=== PATIENT | male | born 1960 | race African-American/Black ===

== ENCOUNTER 2018-09-14 14:50 | Emergency (ER) | payer MEDICAID, OTHER ==
[~2018-09-14] VITALS: Ht 167.6 cm; Wt 59.0 kg
[~2018-09-14 14:50] MED LIST: ACYC400T5; ATRIPLA; PRENATAL
[2018-09-14 15:18] VITALS: BP 144/81
[2018-09-14 17:17] LABS: CLARITY URINE CLEAR (CLEAR); COLOR URINE YELLOW (YELLOW); KETONES URINE TRACE (NEGATIVE); LEUKOCYTE ESTERASE URINE TRACE (NEGATIVE); NITRITE URINE NEGATIVE (NEGATIVE); OCCULT BLOOD URINE 1+ (NEGATIVE); PH URINE 6.5 (4.5-8.0); PROTEIN URINE 2+ (NEGATIVE)
[2018-09-15] MEDS ORDERED: CLONIDINE 0.1MG TABLET PO PRN (20:15)
[2018-09-15] MEDS ORDERED: ACETAMINOPHEN 325MG TABLET PO PRN (20:15)
[2018-09-15] MEDS ORDERED: CEFTRIAXONE 1 G PREMIX 50 ML IV SCH (20:15)
[2018-09-15] MEDS ORDERED: MAGNESIUM/ALUMINUM HYDROXIDE/SIMETHICONE 30ML UDC PO PRN (20:15)
[2018-09-15] MEDS ORDERED: IPRATROPIUM/ALBUTEROL 0.5-3(2.5)MG/3ML NEB INH PRN (20:15)
[2018-09-15] MEDS ORDERED: ONDANSETRON HCL 4MG/2ML INJ IV PRN (20:15)
[2018-09-15] MEDS ORDERED: DOCUSATE SODIUM 100MG CAPSULE PO PRN (20:15)
[2018-09-16] MEDS ORDERED: OMEPRAZOLE 20MG CAPSULE EXTENDED RELEASE PO SCH (07:50)
[2018-09-16 09:53] LABS: PHOSPHORUS 3.2 mg/dL (2.5-4.9)
[2018-09-16 09:56] LABS: T4 FREE 1.32 ng/dL (0.76-1.46)
== END 2018-09-14 18:47 | disposition left against medical advice (07) ==
LOC: ER 14:50
DX: R53.1 Weakness (principal); R49.8 Other voice and resonance disorders
CPT/HCPCS: 36415; 84100; 84153; 84439; 84443; 84481; 84484; 99283; G0103

== ENCOUNTER 2018-09-15 09:29 | Inpatient (IN) | payer MEDICAID ==
[~2018-09-15] VITALS: Ht 170.2 cm; Wt 57.2 kg
[2018-09-15 12:12] LABS: BASOPHILS % 0.8 % (0.0-2.0); EOSINOPHILS % 0.7 % (0.0-5.0); HEMATOCRIT. 34.9 % (42.0-52.0); LYMPHOCYTES % 21.8 % (20.0-50.0); MEAN CORPUSCULAR HEMOGLOBIN 26.5 pg (28.0-32.0); MEAN CORPUSCULAR VOLUME 84.1 fL (80.0-94.0); MEAN PLATELET VOLUME 7.2 fl (7.4-10.4); MONOCYTES % 14.3 % (2.0-8.0); NEUTROPHILS % 62.4 % (40.0-76.0); PLATELET 271 x1000/uL (130-400); RED BLOOD CELL COUNT 4.15 mill/uL (4.7-6.1)
[2018-09-15 12:20] LABS: CHLORIDE 104 mEq/L (98-107)
[2018-09-15 12:24] LABS: ETHANOL BLOOD < 10 mg/dL
[2018-09-15 12:26] LABS: CANNABINOID URINE SCREEN PRESUMTIVE POSITIVE (NEGATIVE); OPIATES URINE SCREEN NEGATIVE (NEGATIVE); PHENCYCLIDINE URINE SCREEN NEGATIVE (NEGATIVE)
[2018-09-15 12:27] LABS: *AMPHETAMINES SCREEN URINE NEGATIVE (NEGATIVE); *BARBITURATES SCREEN URINE NEGATIVE (NEGATIVE); *BENZODIAZEPINES SCREEN URINE NEGATIVE (NEGATIVE); *COCAINE SCREEN URINE NEGATIVE (NEGATIVE); METHADONE URINE SCREEN NEGATIVE (NEGATIVE)
[2018-09-15 12:32] LABS: INR 1.3; PROTHROMBIN TIME 13.2 sec (9.1-11.1)
[2018-09-15] MEDS ORDERED: ASPIRIN 325MG EC TABLET PO ONE (14:00)
[2018-09-15] MEDS ORDERED: MAGNESIUM/ALUMINUM HYDROXIDE/SIMETHICONE 30ML UDC PO PRN (20:30)
[2018-09-15] MEDS ORDERED: DIPHENHYDRAMINE 50MG/ML VIAL IV PRN (20:30)
[2018-09-15 22:35] VITALS: BP 126/83
[2018-09-15 23:00] VITALS: BP 126/83
[2018-09-16] VITALS (10 sets, daily range): BP systolic 106–150; BP diastolic 64–86
[2018-09-16] MEDS ORDERED: FINA5TAB11 PO (00:29)
[2018-09-16] MEDS ORDERED: TAMS0.4C31 PO (00:29)
[2018-09-16] MEDS ORDERED: PNV1TABL50 PO (00:29)
[2018-09-16] MEDS ORDERED: BICT1TAB PO (00:29)
[2018-09-16] MEDS ORDERED: ONDANSETRON HCL 4MG/2ML INJ IV PRN (06:15)
[2018-09-16] MEDS ORDERED: CLONIDINE 0.1MG TABLET PO PRN (06:15)
[2018-09-16] MEDS ORDERED: ACETAMINOPHEN 325MG TABLET PO PRN (06:15)
[2018-09-16] MEDS ORDERED: IPRATROPIUM/ALBUTEROL 0.5-3(2.5)MG/3ML NEB HHN PRN ×2 (06:15→13:00)
[2018-09-16] MEDS ORDERED: DOCUSATE SODIUM 100MG CAPSULE PO PRN (06:15)
[2018-09-16] MEDS: OMEPRAZOLE 20MG CAPSULE EXTENDED RELEASE PO SCH (06:18)
[2018-09-16 06:51] LABS: HEMATOCRIT. 32.9 % (42.0-52.0); HEMOGLOBIN. 10.5 g/dL (14.0-18.0); MEAN CORPUSCULAR HEMOGLOBIN 26.5 pg (28.0-32.0); MEAN CORPUSCULAR VOLUME 82.8 fL (80.0-94.0); MEAN PLATELET VOLUME 7.8 fl (7.4-10.4); PLATELET 267 x1000/uL (130-400); RED BLOOD CELL COUNT 3.98 mill/uL (4.7-6.1); RED CELL DISTRIBUTION WIDTH 14.3 % (11.6-14.6)
[2018-09-16 07:16] LABS: CHLORIDE 104 mEq/L (98-107)
[2018-09-16 07:29] LABS: LDL CHOLESTEROL 86 mg/dL (5-100)
[2018-09-16 07:31] LABS: HDL CHOLESTEROL 34 mg/dL (40-59)
[2018-09-16] MEDS: CLOPIDOGREL 75MG TABLET PO SCH (09:52)
[2018-09-16] MEDS: CEFTRIAXONE 1,000 MG in DEXTROSE 5% WATER 50 ML IV SCH (10:19)
[2018-09-16 10:30] LABS: T4 FREE 1.32 ng/dL (0.76-1.46)
[2018-09-16 10:44] LABS: FOLIC ACID (FOLATE) SERUM 13.3 ng/mL (>5.38)
[2018-09-16 13:10] LABS: PLATELET ESTIMATE NORMAL
[2018-09-16] MEDS ORDERED: ALBU18HF2 IH (13:21)
[2018-09-16] MEDS: TAMSULOSIN HCL 0.4MG SR CAPSULE PO SCH (15:41)
[2018-09-16] MEDS: PRENATAL VIT/FE FUMARATE/FA TABLET PO SCH (15:42)
[2018-09-16] MEDS: ACYCLOVIR 400 MG TABLET PO SCH (16:00)
[2018-09-16] MEDS ORDERED: ACYCLOVIR 200MG CAPSULE PO SCH (16:00)
[2018-09-16] MEDS ORDERED: ALBUTEROL 6.7GM HFA INHALER INH SCH (16:00)
[2018-09-16] MEDS ORDERED: FERROUS FUMARATE PO SCH (16:00)
[2018-09-16] MEDS ORDERED: MEDICATION NOT ON FORMULARY EA (Bictegrav/Emtricit/Tenofov Ala (Biktarvy 50-200-25 mg Ta PO SCH (16:00)
[2018-09-16] MEDS ORDERED: [UNRECOGNIZED DRUG - OTHER] PO SCH (16:00)
[2018-09-16] MEDS ORDERED: PNV CMB PO SCH (16:00)
[2018-09-16] MEDS ORDERED: ALBUTEROL (0.083%) 2.5MG/3ML NEB HHN SCH (18:00)
[2018-09-16] MEDS: FINASTERIDE 5MG TABLET PO SCH (19:21)
[2018-09-17] VITALS (11 sets, daily range): BP systolic 95–129; BP diastolic 60–93
[2018-09-17 06:55] LABS: HEMOGLOBIN. 10.1 g/dL (14.0-18.0); MEAN CORPUSCULAR HEMOGLOBIN 26.3 pg (28.0-32.0); MEAN CORPUSCULAR VOLUME 83.2 fL (80.0-94.0); MEAN PLATELET VOLUME 7.7 fl (7.4-10.4); PLATELET 288 x1000/uL (130-400); RED BLOOD CELL COUNT 3.85 mill/uL (4.7-6.1)
[2018-09-17 07:08] LABS: CHLORIDE 102 mEq/L (98-107)
[2018-09-17] MEDS: OMEPRAZOLE 20MG CAPSULE EXTENDED RELEASE PO SCH (08:25)
[2018-09-17] MEDS: CLOPIDOGREL 75MG TABLET PO SCH (08:26)
[2018-09-17] MEDS: FINASTERIDE 5MG TABLET PO SCH (08:26)
[2018-09-17] MEDS: TAMSULOSIN HCL 0.4MG SR CAPSULE PO SCH (08:26)
[2018-09-17] MEDS: PRENATAL VIT/FE FUMARATE/FA TABLET PO SCH (08:26)
[2018-09-17] MEDS: ACYCLOVIR 400 MG TABLET PO SCH (08:28)
[2018-09-17] MEDS ORDERED: MEDICATION NOT ON FORMULARY EA (Finasteride 5 MG) PO SCH (09:00)
[2018-09-17] MEDS: CEFTRIAXONE 1,000 MG in DEXTROSE 5% WATER 50 ML IV SCH (09:31)
[2018-09-17 14:31] LABS: PLATELET ESTIMATE NORMAL
[2018-09-18] MEDS ORDERED: FAMOTIDINE 20MG TABLET PO SCH (09:00)
[2018-09-18 09:06] LABS: ABSOLUTE EOSINOPHILS 0.1 x10E3/uL (0.0-0.4); ABSOLUTE LYMPHOCYTES 2.1 x10E3/uL (0.7-3.1); ABSOLUTE MONOCYTES 0.9 x10E3/uL (0.1-0.9); ABSOLUTE NEUTROPHILS 6.3 x10E3/uL (1.4-7.0); BASOPHILS 0 % (Not Estab.); HEMATOCRIT 33.8 % (37.5-51.0); HEMOGLOBIN 10.4 g/dL (13.0-17.7); IMMATURE GRANULOCYTES 0 % (Not Estab.); LYMPHOCYTES 22 % (Not Estab.); MEAN CORPUSCULAR HEMOGLOBIN 26.5 pg (26.6-33.0); MEAN CORPUSCULAR HGB CONC. 30.8 g/dL (31.5-35.7); MEAN CORPUSCULAR VOLUME 86 fL (79-97); MONOCYTES 10 % (Not Estab.); NEUTROPHILS 67 % (Not Estab.); PLATELETS 278 x10E3/uL (150-379); RBC 3.92 x10E6/uL (4.14-5.80); RED CELL DISTRIBUTION WIDTH 14.1 % (12.3-15.4); WBC 9.5 x10E3/uL (3.4-10.8)
[2018-09-18 13:06] LABS: % CD 3 POS. LYMPHOCYTES 69.7 % (57.5-86.2); % CD 4 POS. LYMPHOCYTES 29.1 % (30.8-58.5); % CD 8 POS. LYMPH 41.5 % (12.0-35.5); ABSOLUTE CD 3 1464 /uL (622-2402); ABSOLUTE CD 4 HELPER 611 /uL (359-1519); ABSOLUTE CD 8 SUPPRESSOR 872 /uL (109-897)
[2018-09-19 05:22] LABS: ANTI-CARDIOLIPIN AB IGA < 9 APL U/mL (0-11); ANTI-CARDIOLIPIN AB IGG < 9 GPL U/mL (0-14); ANTI-CARDIOLIPIN AB IGM 9 MPL U/mL (0-12)
[2018-09-19 15:06] LABS: ANTI-THROMBIN ACTIVITY 136 % (75-135); DRVVT LA 56.5 sec (0.0-47.0); PROTEIN C FUNCTIONAL 119 % (73-180); PTT-LA 49.9 sec (0.0-51.9)
[2018-09-20 09:06] LABS: DRVVT MIX LA 44.4 sec (0.0-47.0)
[2018-09-20 17:09] LABS: LUPUS ANTICOAG INTERPRETATION Comment: (.)
== END 2018-09-17 17:35 | disposition home or self-care (01) | DRG 45 ==
LOC: ER 10:44 → 8WST 14:50 → ENRESERV 20:59 → 5EST 09-16 11:42
PROVIDERS: ADMIT Family Medicine Adult Medicine; ATTEND Family Medicine Adult Medicine
PROC: 4A00X4Z Measurement of Central Nervous Electrical Activity, External Approach (ICD-10-PCS; principal; 2018-09-16)
DX: I63.9 Cerebral infarction, unspecified (principal); E43 Unspecified severe protein-calorie malnutrition; J96.10 Chronic respiratory failure, unspecified whether with hypoxia or hypercapnia; J98.4 Other disorders of lung; D64.9 Anemia, unspecified; I10 Essential (primary) hypertension; E78.5 Hyperlipidemia, unspecified; F12.90 Cannabis use, unspecified, uncomplicated; F17.210 Nicotine dependence, cigarettes, uncomplicated; J44.9 Chronic obstructive pulmonary disease, unspecified; N40.0 Benign prostatic hyperplasia without lower urinary tract symptoms; Z86.11 Personal history of tuberculosis; Z79.899 Other long term (current) drug therapy
CPT/HCPCS: 36415; 70544; 70551; 71045; 71250; 80048; 80061; 80305; 80320; 81400; 81403; 81407; 81479; 82607; 82746; 83036; 83735; 83880; 84100; 84153; 84439; 84443; 84481; 84484; 85300; 85303; 85306; 85613; 85732; 86147; 86359; 86360; 93005; 93306; 93880; 93970; 97162; 99285; J0696; J7050; J7060; G0103; G0480

== ENCOUNTER 2018-10-21 11:41 | Inpatient (IN) | payer MEDICAID ==
[~2018-10-21] VITALS: Ht 360.7 cm; Wt 51.5 kg
[~2018-10-21 11:41] MED LIST changes: +ALBU18HF2 IH; +BICT1TAB PO; +FINA5TAB11 PO; +PNV1TABL50 PO; -PRENATAL; +TAMS0.4C31 PO
[2018-10-21] MEDS ORDERED: KETOROLAC 30MG/ML VIAL IV STA (15:57)
[2018-10-21] MEDS ORDERED: SODIUM CHLORIDE 0.9% 1,000 ML IV ONE (15:57)
[2018-10-21] MEDS ORDERED: MAGNESIUM/ALUMINUM HYDROXIDE/SIMETHICONE 30ML UDC PO STA (15:57)
[2018-10-21] MEDS ORDERED: PANTOPRAZOLE SODIUM 40 MG/VIAL IV STA (15:57)
[2018-10-21 16:24] LABS: CHLORIDE 100 mEq/L (98-107)
[2018-10-21 16:30] LABS: HEMATOCRIT. 25.8 % (42.0-52.0); HEMOGLOBIN. 8.2 g/dL (14.0-18.0); MEAN CORPUSCULAR HEMOGLOBIN 25.1 pg (28.0-32.0); MEAN CORPUSCULAR VOLUME 78.7 fL (80.0-94.0); MEAN PLATELET VOLUME 7.1 fl (7.4-10.4); PLATELET 286 x1000/uL (130-400); RED BLOOD CELL COUNT 3.28 mill/uL (4.7-6.1); RED CELL DISTRIBUTION WIDTH 15.5 % (11.6-14.6)
[2018-10-21 16:48] LABS: PLATELET ESTIMATE NORMAL
[2018-10-21] MEDS ORDERED: FENTANYL CITRATE/PF 50MCG/ML 2ML VIAL IV ONE (17:45)
[2018-10-21 18:22] LABS: CLARITY URINE CLEAR (CLEAR); COLOR URINE DARK YELLOW (YELLOW); KETONES URINE NEGATIVE (NEGATIVE); LEUKOCYTE ESTERASE URINE TRACE (NEGATIVE); NITRITE URINE NEGATIVE (NEGATIVE); OCCULT BLOOD URINE 2+ (NEGATIVE); PH URINE 5.5 (4.5-8.0); PROTEIN URINE 2+ (NEGATIVE); SPECIFIC GRAVITY URINE 1.025 (1.005-1.030)
[2018-10-21] MEDS ORDERED: HYDRALAZINE 20MG/ML VIAL IV PRN (19:45)
[2018-10-21] MEDS ORDERED: DOCUSATE SODIUM 100MG CAPSULE PO PRN (19:45)
[2018-10-21] MEDS ORDERED: LORAZEPAM 2MG/ML CPJ IV PRN (19:45)
[2018-10-21] MEDS ORDERED: IPRATROPIUM/ALBUTEROL 0.5-3(2.5)MG/3ML NEB INH PRN (19:45)
[2018-10-21] MEDS ORDERED: MAGNESIUM/ALUMINUM HYDROXIDE/SIMETHICONE 30ML UDC PO PRN (19:45)
[2018-10-21] MEDS ORDERED: DIPHENHYDRAMINE 50MG/ML VIAL IV PRN (19:45)
[2018-10-21] MEDS ORDERED: CLONIDINE 0.1MG TABLET PO PRN (19:45)
[2018-10-21] MEDS ORDERED: ACETAMINOPHEN 325MG TABLET PO PRN (19:45)
[2018-10-21] MEDS ORDERED: GUAIFENESIN 200MG/10ML SUGAR FREE UDC PO PRN (19:45)
[2018-10-21] MEDS ORDERED: ONDANSETRON HCL 4MG/2ML INJ IV PRN (19:45)
[2018-10-21] MEDS ORDERED: LEVOFLOXACIN 500MG PREMIX 100 ML IV NR (20:35)
[2018-10-21] MEDS ORDERED: HYDROMORPHONE HCL/PF 2MG/ML CPJ IV PRN (21:00)
[2018-10-21] MEDS ORDERED: HYDROCODONE/ACETAMINOPHEN 10/325MG TABLET PO PRN (21:00)
[2018-10-21] MEDS ORDERED: NA PHOS,M-B/NA PHOS,DI-BA ENEMA 118ML PR PRN (21:00)
[2018-10-21 21:50] VITALS: BP 113/67
[2018-10-21] MEDS ORDERED: SODIUM CHLORIDE 0.9% INJ 3ML FLUSH IVF SCH (22:00)
[2018-10-21 23:40] LABS: CREATINE KINASE MB FRACTION 6.5 ng/mL (0.5-3.6)
[2018-10-22] VITALS: BP 130/75
[2018-10-22 04:02] VITALS: BP 107/51
[2018-10-22] MEDS: SODIUM CHLORIDE 0.9% INJ 3ML FLUSH IVF SCH ×3 (05:03→21:29)
[2018-10-22 07:48] LABS: BASOPHILS % 0.3 % (0.0-2.0); EOSINOPHILS % 0.1 % (0.0-5.0); HEMATOCRIT. 23.7 % (42.0-52.0); HEMOGLOBIN. 7.4 g/dL (14.0-18.0); LYMPHOCYTES % 8.2 % (20.0-50.0); MEAN CORPUSCULAR VOLUME 79.8 fL (80.0-94.0); MEAN PLATELET VOLUME 7.7 fl (7.4-10.4); MONOCYTES % 9.5 % (2.0-8.0); NEUTROPHILS % 81.9 % (40.0-76.0); PLATELET 263 x1000/uL (130-400); RED BLOOD CELL COUNT 2.97 mill/uL (4.7-6.1); RED CELL DISTRIBUTION WIDTH 15.8 % (11.6-14.6)
[2018-10-22 07:59] LABS: CHLORIDE 104 mEq/L (98-107)
[2018-10-22 08:00] VITALS: BP 92/43
[2018-10-22 08:15] LABS: CREATINE KINASE 133 IU/L (39-308)
[2018-10-22] MEDS ORDERED: ENOXAPARIN 40MG/0.4ML SYR SUBCUT SCH (09:00)
[2018-10-22] MEDS ORDERED: ASPIRIN 81MG EC TABLET PO SCH (09:00)
[2018-10-22 13:19] LABS: INR 1.4; PROTHROMBIN TIME 13.8 sec (9.6-11.0)
[2018-10-22 14:54] VITALS: BP 111/56
[2018-10-22 16:00] VITALS: BP 99/54
[2018-10-22] MEDS ORDERED: METOCLOPRAMIDE HCL 10MG/2ML VIAL IV NR ×2 (18:00→22:00)
[2018-10-22] MEDS ORDERED: BISACODYL 5MG TABLET PO NR ×2 (19:00→23:00)
[2018-10-22] MEDS ORDERED: SORBITOL 70% SOLN 30ML PO NR (19:00)
[2018-10-22 20:00] VITALS: BP 116/67
[2018-10-22] MEDS ORDERED: LEVOFLOXACIN 500MG PREMIX 100 ML IV SCH ×2 (20:36→21:00)
[2018-10-22 21:20] LABS: HEMOGLOBIN 7.5 g/dL (14.0-18.0)
[2018-10-23] VITALS: BP 110/60
[2018-10-23 04:00] VITALS: BP 101/64
[2018-10-23] MEDS: SODIUM CHLORIDE 0.9% INJ 3ML FLUSH IVF SCH (05:51)
[2018-10-23] MEDS ORDERED: SORBITOL 70% SOLN 30ML PO NR ×2 (06:00)
[2018-10-23 06:46] LABS: BASOPHILS % 0.5 % (0.0-2.0); EOSINOPHILS % 0.2 % (0.0-5.0); HEMATOCRIT. 23.3 % (42.0-52.0); HEMOGLOBIN. 7.4 g/dL (14.0-18.0); MEAN CORPUSCULAR HEMOGLOBIN 25.1 pg (28.0-32.0); MEAN CORPUSCULAR VOLUME 79.3 fL (80.0-94.0); MEAN PLATELET VOLUME 7.9 fl (7.4-10.4); MONOCYTES % 11.6 % (2.0-8.0); NEUTROPHILS % 71.7 % (40.0-76.0); PLATELET 312 x1000/uL (130-400); RED BLOOD CELL COUNT 2.94 mill/uL (4.7-6.1); RED CELL DISTRIBUTION WIDTH 15.8 % (11.6-14.6)
[2018-10-23 07:40] LABS: CHLORIDE 104 mEq/L (98-107)
== END 2018-10-23 08:08 | disposition home or self-care (01) | DRG 892 ==
LOC: ER 11:41 → 6EST 18:21 → ENRESERV 20:51 → 6WST 10-22 02:13
PROVIDERS: ADMIT Internal Medicine; ATTEND Internal Medicine
DX: B20 Human immunodeficiency virus [HIV] disease (principal); A41.9 Sepsis, unspecified organism; E46 Unspecified protein-calorie malnutrition; R16.0 Hepatomegaly, not elsewhere classified; R71.0 Precipitous drop in hematocrit; N39.0 Urinary tract infection, site not specified; R10.9 Unspecified abdominal pain; Z79.899 Other long term (current) drug therapy; I10 Essential (primary) hypertension; R91.1 Solitary pulmonary nodule; R74.8 Abnormal levels of other serum enzymes; J44.9 Chronic obstructive pulmonary disease, unspecified; K40.90 Unilateral inguinal hernia, without obstruction or gangrene, not specified as recurrent; N40.0 Benign prostatic hyperplasia without lower urinary tract symptoms; Z79.02 Long term (current) use of antithrombotics/antiplatelets; Z79.82 Long term (current) use of aspirin; Z80.0 Family history of malignant neoplasm of digestive organs; Z86.73 Personal history of transient ischemic attack (TIA), and cerebral infarction without residual deficits
CPT/HCPCS: 36415; 74176; 80048; 80076; 82105; 82550; 82553; 82728; 83540; 83550; 84484; 85014; 85018; 86850; 86900; 86920; 93005; 96374; 96375; 99285; C9113; J1650; J1885; J1956; J2765; J3010; J7030; J7050

== ENCOUNTER 2018-12-15 18:06 | Inpatient (IN) | payer MEDICAID ==
[~2018-12-15] VITALS: Ht 153.9 cm; Wt 60.8 kg
[~2018-12-15 18:06] MED LIST changes: -ACYC400T5; +ACYC400T5 PO
[2018-12-15] MEDS ORDERED: TRAMADOL 50MG TABLET PO ONE (20:30)
[2018-12-15 23:08] LABS: BASOPHILS % 0.7 % (0.0-2.0); EOSINOPHILS % 0.1 % (0.0-5.0); LYMPHOCYTES % 13.3 % (20.0-50.0); MEAN CORPUSCULAR HEMOGLOBIN 26.1 pg (28.0-32.0); MEAN CORPUSCULAR VOLUME 82.1 fL (80.0-94.0); MEAN PLATELET VOLUME 7.6 fl (7.4-10.4); MONOCYTES % 9.1 % (2.0-8.0); NEUTROPHILS % 76.8 % (40.0-76.0); PLATELET 241 x1000/uL (130-400); RED BLOOD CELL COUNT 3.05 mill/uL (4.7-6.1); RED CELL DISTRIBUTION WIDTH 19.5 % (11.6-14.6)
[2018-12-15 23:09] LABS: CHLORIDE 102 mEq/L (98-107); INR 1.4
[2018-12-16 01:00] VITALS: BP 93/65
[2018-12-16] MEDS ORDERED: ACETAMINOPHEN 325MG TABLET PO PRN (01:15)
[2018-12-16] MEDS ORDERED: ONDANSETRON HCL 4MG/2ML INJ IV PRN (01:15)
[2018-12-16] MEDS ORDERED: MORPHINE SULFATE 2 MG/ML CPJ (NOT FOR IM USE) IV PRN (01:15)
[2018-12-16] MEDS ORDERED: PIPERACILLIN/TAZ 3.375G PREMIX 50 ML IV SCH (03:00)
[2018-12-16] MEDS: PIPERACILLIN/TAZ 3.375G PREMIX 50 ML IV SCH ×4 (03:44→21:08)
[2018-12-16] MEDS ORDERED: PIPERACILLIN/TAZOBACTAM 3.375GM/50ML PREMIX IV SCH (06:00)
[2018-12-16 08:00] VITALS: BP 95/61
[2018-12-16] MEDS ORDERED: IPRATROPIUM/ALBUTEROL 0.5-3(2.5)MG/3ML NEB HHN PRN ×2 (08:15→12:00)
[2018-12-16] MEDS ORDERED: HYDROCODONE/ACETAMINOPHEN 5/325MG TABLET PO PRN (08:15)
[2018-12-16 12:00] VITALS: BP 99/62
[2018-12-16] MEDS ORDERED: BUDESONIDE 0.5MG/2ML NEB HHN SCH (12:00)
[2018-12-16] MEDS: TAMSULOSIN HCL 0.4MG SR CAPSULE PO SCH (12:53)
[2018-12-16 16:00] VITALS: BP 114/77
[2018-12-16] MEDS ORDERED: IOHEXOL-300 100 ML BOTTLE ONE (17:39)
[2018-12-16] MEDS ORDERED: IPRATROPIUM/ALBUTEROL 0.5-3(2.5)MG/3ML NEB HHN SCH (18:00)
[2018-12-16 20:00] VITALS: BP 96/67
[2018-12-16] MEDS: ENOXAPARIN 60MG/0.6ML SYR SUBCUT SCH ×2 (20:00→21:08)
[2018-12-17] VITALS (18 sets, daily range): BP systolic 103–126; BP diastolic 69–78
[2018-12-17] MEDS: PIPERACILLIN/TAZ 3.375G PREMIX 50 ML IV SCH ×2 (03:27→08:56)
[2018-12-17] MEDS: ENOXAPARIN 60MG/0.6ML SYR SUBCUT SCH (08:23)
[2018-12-17] MEDS: TAMSULOSIN HCL 0.4MG SR CAPSULE PO SCH (08:56)
[2018-12-17] MEDS ORDERED: FINASTERIDE 5MG TABLET PO SCH (09:00)
[2018-12-17] MEDS ORDERED: ACYCLOVIR 400 MG PO SCH (09:00)
[2018-12-17] MEDS ORDERED: MEDICATION NOT ON FORMULARY EA (Finasteride 5 MG) PO SCH (09:00)
[2018-12-17] MEDS ORDERED: BIKTARVY PO SCH (09:00)
[2018-12-17] MEDS ORDERED: ACYCLOVIR 400 MG TABLET PO SCH (09:00)
[2018-12-17 09:02] LABS: CHLORIDE 105 mEq/L (98-107)
[2018-12-17 09:04] LABS: BASOPHILS % 0.5 % (0.0-2.0); EOSINOPHILS % 0.3 % (0.0-5.0); HEMATOCRIT. 23.4 % (42.0-52.0); HEMOGLOBIN. 7.4 g/dL (14.0-18.0); LYMPHOCYTES % 14.4 % (20.0-50.0); MEAN CORPUSCULAR HEMOGLOBIN 26.3 pg (28.0-32.0); MEAN CORPUSCULAR VOLUME 83.5 fL (80.0-94.0); MEAN PLATELET VOLUME 7.6 fl (7.4-10.4); MONOCYTES % 13.7 % (2.0-8.0); NEUTROPHILS % 71.1 % (40.0-76.0); PLATELET 219 x1000/uL (130-400); RED CELL DISTRIBUTION WIDTH 19.6 % (11.6-14.6)
[2018-12-17 09:08] LABS: ABSOLUTE LYMPHOCYTES 1.3 x10E3/uL (0.7-3.1); ABSOLUTE MONOCYTES 0.8 x10E3/uL (0.1-0.9); ABSOLUTE NEUTROPHILS 8.2 x10E3/uL (1.4-7.0); BASOPHILS 0 % (Not Estab.); HEMATOCRIT 26.4 % (37.5-51.0); HEMOGLOBIN 7.8 g/dL (13.0-17.7); IMMATURE GRANULOCYTES 0 % (Not Estab.); LYMPHOCYTES 13 % (Not Estab.); MEAN CORPUSCULAR HEMOGLOBIN 24.8 pg (26.6-33.0); MEAN CORPUSCULAR HGB CONC. 29.5 g/dL (31.5-35.7); MEAN CORPUSCULAR VOLUME 84 fL (79-97); MONOCYTES 7 % (Not Estab.); NEUTROPHILS 80 % (Not Estab.); PLATELETS 259 x10E3/uL (150-450); RBC 3.14 x10E6/uL (4.14-5.80); RED CELL DISTRIBUTION WIDTH 19.4 % (12.3-15.4); WBC 10.3 x10E3/uL (3.4-10.8)
[2018-12-17] MEDS ORDERED: FENTANYL CITRATE/PF 50MCG/ML 2ML VIAL ONE (11:15)
[2018-12-17] MEDS ORDERED: SODIUM BICARBONATE 4% (2.4MEQ) 5ML VIAL IV ONE (11:15)
[2018-12-17] MEDS ORDERED: LIDOCAINE HCL 1% 20ML VIAL (Pyxis) INJ ONE (11:15)
[2018-12-17] MEDS ORDERED: FENTANYL CITRATE/PF 50MCG/ML 2ML VIAL IV SCH (12:15)
[2018-12-17 13:13] LABS: % CD 3 POS. LYMPHOCYTES 78.1 % (57.5-86.2); % CD 4 POS. LYMPHOCYTES 33.4 % (30.8-58.5); % CD 8 POS. LYMPH 45.1 % (12.0-35.5); ABSOLUTE CD 3 1015 /uL (622-2402); ABSOLUTE CD 4 HELPER 434 /uL (359-1519); ABSOLUTE CD 8 SUPPRESSOR 586 /uL (109-897); CD4/CD8 RATIO 0.74 (0.92-3.72)
== END 2018-12-17 15:45 | disposition home or self-care (01) | DRG 281 ==
LOC: ER 18:06 → 6EST 22:55 → EDBEDREQ 22:58 → EDBEDREQTM 22:58 → ENRESERV 23:46
PROVIDERS: ADMIT Internal Medicine; ATTEND Internal Medicine
PROC: 0F903ZX Drainage of Liver, Percutaneous Approach, Diagnostic (ICD-10-PCS; principal; 2018-12-17)
PROC: 0FB03ZX Excision of Liver, Percutaneous Approach, Diagnostic (ICD-10-PCS; 2018-12-17)
DX: C78.7 Secondary malignant neoplasm of liver and intrahepatic bile duct (principal); E43 Unspecified severe protein-calorie malnutrition; K75.0 Abscess of liver; B20 Human immunodeficiency virus [HIV] disease; C34.90 Malignant neoplasm of unspecified part of unspecified bronchus or lung; E87.1 Hypo-osmolality and hyponatremia; D64.9 Anemia, unspecified; J43.9 Emphysema, unspecified; N40.0 Benign prostatic hyperplasia without lower urinary tract symptoms; F17.200 Nicotine dependence, unspecified, uncomplicated; I10 Essential (primary) hypertension; Z86.11 Personal history of tuberculosis; Z86.73 Personal history of transient ischemic attack (TIA), and cerebral infarction without residual deficits; Z79.899 Other long term (current) drug therapy; Z68.25 Body mass index [BMI] 25.0-25.9, adult
CPT/HCPCS: 36415; 71045; 71250; 74177; 76705; 76942; 80048; 82105; 82378; 83615; 84145; 84153; 86359; 86360; 87075; 93005; 93970; 96374; 99285; J1650; J2270; J2543; J3010; J3490; J7040; J7050; Q9967; A4315; G0103

== ENCOUNTER 2019-01-22 10:16 | Emergency (ER) | payer MEDICAID ==
[~2019-01-22] VITALS: Ht 172.7 cm; Wt 68.0 kg
[2019-01-22] MEDS ORDERED: SODIUM CHLORIDE 0.9% 1,000 ML IV ONE (10:42)
[2019-01-22 11:30] LABS: BASOPHILS % 0.6 % (0.0-2.0); EOSINOPHILS % 0.2 % (0.0-5.0); HEMATOCRIT. 29.4 % (42.0-52.0); HEMOGLOBIN. 9.4 g/dL (14.0-18.0); LYMPHOCYTES % 12.5 % (20.0-50.0); MEAN CORPUSCULAR HEMOGLOBIN 27.4 pg (28.0-32.0); MEAN CORPUSCULAR VOLUME 86.2 fL (80.0-94.0); MEAN PLATELET VOLUME 8.3 fl (7.4-10.4); MONOCYTES % 11.5 % (2.0-8.0); NEUTROPHILS % 75.2 % (40.0-76.0); PLATELET 294 x1000/uL (130-400); RED BLOOD CELL COUNT 3.42 mill/uL (4.7-6.1); RED CELL DISTRIBUTION WIDTH 17.1 % (11.6-14.6)
[2019-01-22 11:37] LABS: INR 1.2; PROTHROMBIN TIME 12.3 sec (9.6-11.0)
[2019-01-22 11:41] LABS: CHLORIDE 102 mEq/L (98-107)
[2019-01-22 11:45] LABS: ETHANOL BLOOD < 10 mg/dL
[2019-01-22 13:43] LABS: *AMPHETAMINES SCREEN URINE NEGATIVE (NEGATIVE); *BARBITURATES SCREEN URINE NEGATIVE (NEGATIVE); *BENZODIAZEPINES SCREEN URINE NEGATIVE (NEGATIVE)
[2019-01-22 13:44] LABS: *COCAINE SCREEN URINE NEGATIVE (NEGATIVE); CANNABINOID URINE SCREEN NEGATIVE (NEGATIVE); METHADONE URINE SCREEN NEGATIVE (NEGATIVE); OPIATES URINE SCREEN NEGATIVE (NEGATIVE); PHENCYCLIDINE URINE SCREEN NEGATIVE (NEGATIVE)
[2019-01-22 16:50] VITALS: BP 110/82
== END 2019-01-22 17:15 | disposition home or self-care (01) ==
LOC: ER 10:16
DX: K62.5 Hemorrhage of anus and rectum (principal); J44.9 Chronic obstructive pulmonary disease, unspecified; Z86.73 Personal history of transient ischemic attack (TIA), and cerebral infarction without residual deficits; Z79.899 Other long term (current) drug therapy
CPT/HCPCS: 36415; 80053; 80305; 80320; 82270; 84484; 85025; 85610; 85730; 86850; 86900; 86901; 93005; 99284; J7030; G0480